=== PATIENT | female | born 1975 | race Caucasian/White ===

== ENCOUNTER → 2023-07-29 | Outpatient (CLI) | payer OTHER, SELFPAY ==
--- NOTE | 2023-07-29 10:03 | STE_ITS ---
Reason For Study: Dyspnea On Exertion Stress Results Protocol: [facility] Protocol Maximum Predicted HR: 170 bpm Target HR: 145 bpm % Maximum Predicted HR: 86 % DurationHeart Rate Stage (mm:ss) (bpm) BP Comment Baseline 71 138/90No Chest Pain [facility] Protocol Stage I 3:00 88 144/84No Chest Pain [facility] Protocol Stage II 3:00 106 160/90No Chest Pain; Mild Dyspnea [facility] Protocol Stage III 3:00 139 178/84No Chest Pain; Moderate Dyspnea [facility] Protocol Stage IV 0:03 146 / No Chest Pain; Moderate Dyspnea Recovery 83 134/80No Chest Pain; No Dyspnea Stress Duration: 9:03 mm:ss Maximum Stress HR: 146 bpm METS: 10 Baseline Echocardiogram Findings The estimated ejection fraction is 65 %. Postexercise EF is 70%. Stress Echo Wall motion Data Resting WM Intermediate WM Stress WM Resting Wall Motion Wall Motion Stress No regional wall motion No regional wall motion abnormalities noted. abnormalities noted. EKG Data The baseline ECG displays normal sinus rhythm. No significant ischemic changes. Symptoms with Stress The patient experinced No chest pain . ECHO/Stress Test Echo w/o Contrast Interpretation Summary The estimated ejection fraction is 65 %. Exercise echo is negative for exercise-induced chest pain or EKG changes or ech ocardiographic changes of ischemia. Functional capacity is normal for age Ordering Physician: ROMIE LANGSTON Referring Physician: ROMIE LANGSTON Performed By: Kandy Davis RDCS
== END | disposition home or self-care (01) ==
LOC: CVS 09:55
PROVIDERS: PCP Internal Medicine; Referring Provider Pharmacist Pharmacist Clinician (PhC)/ Clinical Pharmacy Specialist; Visit Provider Pharmacist Pharmacist Clinician (PhC)/ Clinical Pharmacy Specialist
DX: R06.09 Other forms of dyspnea (principal); G47.33 Obstructive sleep apnea (adult) (pediatric); Z82.49 Family history of ischemic heart disease and other diseases of the circulatory system
CPT/HCPCS: 93017; 93350